=== PATIENT | female | born 1960 | race American Indian/Alaskan Native ===

== ENCOUNTER 2021-07-27 18:50 | Emergency (ER) | payer OTHER ==
[2021-07-28] MEDS ORDERED: ACETAMINOPHEN 500 MG TAB PO ONE (00:48)
[2021-07-28] MEDS ORDERED: IBUPROFEN 600 MG TAB PO ONE (00:48)
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
[2021-07-28 04:37] VITALS: BP 139/63
== END 2021-07-28 04:37 | disposition home or self-care (01) ==
LOC: ED 18:50
DX: S43.401A Unspecified sprain of right shoulder joint, initial encounter (principal); M62.838 Other muscle spasm; I10 Essential (primary) hypertension; E11.9 Type 2 diabetes mellitus without complications; Z90.710 Acquired absence of both cervix and uterus; Z91.010 Allergy to peanuts; Z91.018 Allergy to other foods; Z91.040 Latex allergy status; V79.9XXA Bus occupant (driver) (passenger) injured in unspecified traffic accident, initial encounter; Y93.89 Activity, other specified; Y92.89 Other specified places as the place of occurrence of the external cause; Y99.8 Other external cause status
CPT/HCPCS: 72070; 72072; 72125; 99284